=== PATIENT | female | born 1995 ===

== ENCOUNTER → 2020-04-15 08:32 | Outpatient (CLI) | payer OTHER, SELFPAY ==
[2020-04-15 16:36] LABS: Rubella Antibody IgG 15.4 IU/mL (>15)
[2020-04-16 07:36] LABS: Rubeola Measles IgG 88.4 AU/mL (Immune >16.4); Varicella IgG Antibody 556 index (Immune >165)
[2020-04-16 15:54] LABS: Mumps Virus IgG Antibody 20.8 AU/mL (Immune >10.9)
== END ==
PROVIDERS: Referring Provider Obstetrics & Gynecology; Visit Provider Obstetrics & Gynecology
DX: Z31.69 Encounter for other general counseling and advice on procreation (principal)
CPT/HCPCS: 36415; 86735; 86762; 86765; 86787